=== PATIENT | male | born 1965 | race Asian ===

== ENCOUNTER 2020-12-13 13:34 | Emergency (ER) | payer OTHER, SELFPAY ==
[2020-12-13 13:52] VITALS: BP 127/86; PULSE 64; TEMP 98.3; BMI 29.4
[2020-12-13] MEDS ORDERED: predniSONE 20 MG TABLET (UD) PO ONE (14:12)
[2020-12-13] MEDS ORDERED: CEPHALEXIN MONOHYDRATE 500 MG CAPSULE (UD) PO ONE (14:12)
[2020-12-13] MEDS ORDERED: CEPHALEXIN MONOHYDRATE 500 MG CAPSULE (UD) ONE (14:14)
[2020-12-13] MEDS ORDERED: predniSONE 20 MG TABLET (UD) ONE (14:15)
== END 2020-12-13 14:21 | disposition home or self-care (01) ==
LOC: FER 13:34
DX: L23.7 Allergic contact dermatitis due to plants, except food (principal)
CPT/HCPCS: 99283-25